=== PATIENT | female | born 1975 | race Hispanic/Latino ===

== ENCOUNTER 2016-12-21 23:10 | Emergency (ER) | payer OTHER ==
[2016-12-21 23:42] VITALS: BMI 30.5
[2016-12-21 23:45] VITALS: O2SAT 98
[2016-12-22] MEDS ORDERED: Lidocaine 5% Patch TD STA (00:45)
--- NOTE | 2016-12-22 00:45 | ED PDOC ---
Arrival/HPI <Irineo Griffin - Last Filed: 12/22/16 02:27> - General Historian: Patient <Álvaro Sánchez - Last Filed: 12/24/16 01:27> - General Chief Complaint: Lower Extremity Problem/Injury Time Seen by Provider: 12/22/16 00:35 - History of Present Illness Narrative History of Present Illness (Text): 12/22/16 00:51 41 y/o female, pmh including seizure? and chronic lt. knee pain, allergic to benadryl and sulfa medication, c/o lt. knee and calf pain started today. Pt. was trying to stand up from the sitting position, suddenly developed the lt. knee pain and radiating to the calf, no difficulty moving the lt. ankle or foot , able to walk and bear weight but with pain, no headache or night sweat, no other medical or psychological complaints. (Álvaro Sánchez) Past Medical History - Provider Review Nursing Documentation Reviewed: Yes - Infectious Disease Hx of Infectious Diseases: None - Tetanus Immunization Tetanus Immunization: Unknown, Up to Date - Past Medical History Past Medical History: No Previous - Cardiac Hx Cardiac Disorders: No - Pulmonary Hx Respiratory Disorders: No - Neurological Hx Neurological Disorder: Yes Hx Seizures: Yes - HEENT Hx HEENT Disorder: No - Renal Hx Renal Disorder: No - Endocrine/Metabolic Hx Systemic Lupus Erythematosus: Yes - Hematological/Oncological Hx Blood Disorders: Yes Other/Comment: Factor 5 clotting d/o - Integumentary Hx Dermatological Disorder: No - Musculoskeletal/Rheumatological Hx Musculoskeletal Disorders: No Hx Rheumatoid Arthritis: Yes - Gastrointestinal Hx Gastrointestinal Disorders: No - Genitourinary/Gynecological Hx Genitourinary Disorders: No - Psychiatric Hx Psychophysiologic Disorder: No Hx Depression: No Hx Emotional Abuse: No Hx Physical Abuse: No Hx Substance Use: No - Surgical History Hx Cholecystectomy: Yes Hx Musculoskeletal Surgery: Yes (right knee, left ankle) - Anesthesia Hx Anesthesia: Yes Hx Anesthesia Reactions: No Hx Malignant Hyperthermia: No - Suicidal Assessment Feels Threatened In Home Enviroment: No <Álvaro Sánchez - Last Filed: 12/24/16 01:27> Family/Social History - Physician Review Nursing Documentation Reviewed: Yes Family/Social History: Unknown Family HX Smoking Status: Heavy Smoker > 10 Cigarettes Daily Hx Alcohol Use: No Hx Substance Use: No Hx Substance Use Treatment: No <Álvaro Sánchez - Last Filed: 12/24/16 01:27> Allergies/Home Meds <Irineo Griffin - Last Filed: 12/22/16 02:27> <Álvaro Sánchez - Last Filed: 12/24/16 01:27> Allergies/Adverse Reactions: Allergies diphenhydramine Allergy (Verified 03/14/16 23:32) ANAPHYLAXIS Sulfa (Sulfonamide Antibiotics) Allergy (Verified 03/14/16 23:32) ANAPHYLAXIS Home Medications: Home Meds Medication Instructions Recorded Confirmed Topiramate [Topamax] 200 mg PO BID 06/21/1516 Review of Systems - Review of Systems Constitutional: absent: Fatigue, Fevers Eyes: absent: Vision Changes ENT: absent: Hearing Changes Respiratory: absent: Cough Cardiovascular: absent: Chest Pain Gastrointestinal: absent: Abdominal Pain, Nausea, Vomiting Genitourinary Female: absent: Dysuria Musculoskeletal: Arthralgias. absent: Back Pain, Neck Pain, Joint Swelling, Myalgias Neurological: absent: Headache, Dizziness, Focal Weakness, Gait Changes, Speech Changes, Facial Droop, Disequilibrium, Seizure <Álvaro Sánchez - Last Filed: 12/24/16 01:27> Physical Exam Vital Signs Reviewed: Yes Temperature: Afebrile Blood Pressure: Normal Pulse: Regular Respiratory Rate: Normal Appearance: Positive for: Well-Appearing, Non-Toxic, Comfortable Pain Distress: Moderate Mental Status: Positive for: Alert and Oriented X 3 - Systems Exam Head: Present: Atraumatic, Normocephalic Pupils: Present: PERRL Extroacular Muscles: Present: EOMI Conjunctiva: Present: Normal Mouth: Present: Moist Mucous Membranes Neck: Present: Normal Range of Motion Respiratory/Chest: Present: Clear to Auscultation, Good Air Exchange. No: Respiratory Distress, Accessory Muscle Use Cardiovascular: Present: Regular Rate and Rhythm, Normal S1, S2. No: Murmurs Abdomen: Present: Normal Bowel Sounds. No: Tenderness, Distention, Peritoneal Signs Back: Present: Normal Inspection Upper Extremity: Present: Normal Inspection. No: Cyanosis, Edema Lower Extremity: Present: Normal Inspection, NORMAL PULSES, Normal ROM, Tenderness, Swelling, Neurovascularly Intact, Capillary Refill < 2 s, Other ( Lt. lower extremity: +ttp on the anterior aspect of the knee including mild swelling, negative prashant and mcqueen signs, no cellulitis or streaking, skin intact, motor 5/5, +DPPT pulses, capillary refill< 2 seconds, neurovascular intact. ). No: Edema, Deformity, Temperature Abnormalties Neurological: Present: GCS=15, CN II-XII Intact, Speech Normal, Motor Func Grossly Intact, Gait Normal, Memory Normal Skin: Present: Warm, Dry, Normal Color. No: Rashes Psychiatric: Present: Alert, Oriented x 3, Normal Insight, Normal Concentration <Álvaro Sánchez - Last Filed: 12/24/16 01:27> Vital Signs Temp Pulse Resp BP Pulse Ox 12/22/16 02:00 98.0 F 78 18 124/80 98 12/21/16 23:41 98.2 F 81 17 130/82 98 Medical Decision Making <Irineo Griffin - Last Filed: 12/22/16 02:27> - RAD Interpretation Nurse Healthcare Manager: Radiologist <Álvaro Sánchez - Last Filed: 12/24/16 01:27> ED Course and Treatment: 12/22/16 00:54 -lt. knee xray and LLE venuous doppler -indomethacin and fede wrap -observe and reassess 12/22/16 02:07 -LLE venuous doppler: as per preliminary report, there is no acute DVT -Lt. knee xray show swelling but no fracture or dislocation -Pain decreased, fede wrap applied with neurovascular intact. -Discharge home with indomethacin, fede wrap, crutches, ice compression, non- weight bearing, follow up with your own pmd and orthopedic within 2 days for MRI of the lt. knee as outpatient follow up for possible menisucus or other ligamentous injury, return to the ER for any new or worsening signs or symptoms. (Álvaro Sánchez) - RAD Interpretation Radiology Orders: 12/22/16 00:45 KNEE WITH PATELLA LEFT 3 VIEW [RAD] Stat 12/22/16 00:46 DUPLEX LOWER EXTRM VEIN LEFT [US] Stat Lt. knee xray: soft tissue swelling without articular fracture or dislocation. LLE Venuous doppler: no evidence of DVT. (Álvaro Sánchez) - Medication Orders Current Medication Orders: Discontinued Medications Indomethacin (Indocin) 50 mg PO STAT STA Stop: 12/22/16 00:46 Last Admin: 12/22/16 01:16 Dose: 50 MG MAR Pain Assessment Document 12/22/16 01:16 JIN (Rec: 12/22/16 01:16 [facility]-[id number]) Pain Reassessment Is this a pain reassessment? Yes Sleep Is patient sleeping during reassessment? No Presence of Pain Presence of Pain Yes Location Left, Right or Bilateral Left Pain Location Body Site Knee Lidocaine (Lidoderm) 1 ea TD STAT STA Stop: 12/22/16 00:46 - PA / [employer]CROW OFFICER / Resident Statement GALINA has reviewed & agrees with the documentation as recorded. <Irineo Griffin - Last Filed: 12/22/16 02:27> - PA / ESCROW OFFICER / Resident Statement GALINA has reviewed & agrees with the documentation as recorded. <Álvaro Sánchez - Last Filed: 12/24/16 01:27> Disposition/Present on Arrival <Irineo Griffin - Last Filed: 12/22/16 02:27> - Present on Arrival Any Indicators Present on Arrival: No History of DVT/PE: No History of Uncontrolled Diabetes: No Urinary Catheter: No History of Decub. Ulcer: No History Surgical Site Infection Following: None - Disposition Have Diagnosis and Disposition been Completed?: Yes Disposition Time: 02:09 Patient Plan: Discharge <Álvaro Sánchez - Last Filed: 12/24/16 01:27> - Disposition Diagnosis: Knee pain, acute, Swelling of knee joint Disposition: HOME/ ROUTINE Condition: IMPROVED Additional Instructions: Discharge home with indomethacin, fede wrap, crutches, ice compression, non- weight bearing, follow up with your own pmd and orthopedic within 2 days for MRI of the lt. knee as outpatient follow up for possible menisucus or other ligamentous injury, return to the ER for any new or worsening signs or symptoms. Prescriptions: Indomethacin [Indocin] 50 mg PO TID PRN #30 cap PRN Reason: Other Referrals: Max Munroe III, MD [Medical Doctor] - Follow up with primary Forms: WORK NOTE
[2016-12-22 05:09] VITALS: BP 124/80; PULSE 78; RESP 18; TEMP 98
--- NOTE | 2016-12-22 11:06 | RAD ---
PROCEDURE: Left knee HISTORY: lt. knee injury and pain COMPARISON: None TECHNIQUE: Standard protocol for this study/examination. FINDINGS: Negative study for fracture No appreciable degenerative change. No joint effusion identified. No visualized, radiopaque loose bodies. Soft tissue swelling suprapatellar region. No associated abnormalities. IMPRESSION: Soft tissue swelling without acute articular or osseous abnormality. Concordant results with the preliminary interpretation rendered by the emergency department physician procedure.
--- NOTE | 2016-12-22 17:36 | US ---
PROCEDURE: Left lower extremity venous US HISTORY: Leg pain and swelling. Evaluate for DVT. PHYSICIAN(S): Robson Dacosta MD. TECHNIQUE: Duplex sonography and color-flow Doppler with graded compression were used to evaluate the deep venous system of the left lower extremity. FINDINGS: The visualized deep venous system of the left lower extremity is sonographically normal and compressible. Normal wave forms and augmentation are seen. There is no sonographic evidence for deep venous thrombosis in the visualized segments of the left lower extremity. IMPRESSION: 1. No sonographic evidence for deep venous thrombosis in the visualized segments of the left lower extremity.
== END 2016-12-22 02:15 | disposition home or self-care (01) ==
LOC: ED 23:10
DX: M25.562 Pain in left knee (principal); M79.89 Other specified soft tissue disorders

== ENCOUNTER 2017-09-12 20:02 | Emergency (ER) | payer OTHER ==
[2017-09-12 20:28] VITALS: RESP 19; TEMP 97.9; BMI 26.4
[2017-09-12] MEDS ORDERED: TDAP Vaccine 0.5 mL Syr IM ONE (20:41)
--- NOTE | 2017-09-12 21:32 | ED PDOC ---
Arrival/HPI - General Chief Complaint: Lower Extremity Problem/Injury Time Seen by Provider: 09/12/17 20:28 Historian: Patient - History of Present Illness Narrative History of Present Illness (Text): 09/12/17 21:25 A 42 year old female presents to the emergency department complaining of right knee and left ankle injuries s/p fall. Patient reports abrasion to knee and pain to lateral aspect of ankle. Patient unable to ambulate due to pain. does not take any anticoagulants. Tetanus shots not up-to-date. No PMD Past Medical History - Provider Review Nursing Documentation Reviewed: Yes - Infectious Disease Hx of Infectious Diseases: None - Tetanus Immunization Tetanus Immunization: Unknown, Up to Date - Past Medical History Past Medical History: No Previous - Cardiac Hx Cardiac Disorders: No - Pulmonary Hx Respiratory Disorders: No - Neurological Hx Neurological Disorder: Yes Hx Seizures: Yes - HEENT Hx HEENT Disorder: No - Renal Hx Renal Disorder: No - Endocrine/Metabolic Hx Systemic Lupus Erythematosus: Yes - Hematological/Oncological Hx Blood Disorders: Yes Other/Comment: Factor 5 clotting d/o - Integumentary Hx Dermatological Disorder: No - Musculoskeletal/Rheumatological Hx Musculoskeletal Disorders: No Hx Rheumatoid Arthritis: Yes - Gastrointestinal Hx Gastrointestinal Disorders: No - Genitourinary/Gynecological Hx Genitourinary Disorders: No - Psychiatric Hx Psychophysiologic Disorder: No Hx Depression: No Hx Emotional Abuse: No Hx Physical Abuse: No Hx Substance Use: No - Surgical History Hx Cholecystectomy: Yes Hx Musculoskeletal Surgery: Yes (right knee, left ankle) - Anesthesia Hx Anesthesia: Yes Hx Anesthesia Reactions: No Hx Malignant Hyperthermia: No - Suicidal Assessment Feels Threatened In Home Enviroment: No Family/Social History - Physician Review Nursing Documentation Reviewed: Yes Family/Social History: No Known Family HX Smoking Status: Heavy Smoker > 10 Cigarettes Daily Hx Alcohol Use: No Hx Substance Use: No Hx Substance Use Treatment: No Allergies/Home Meds Allergies/Adverse Reactions: Allergies diphenhydramine Allergy (Verified 09/12/17 20:28) ANAPHYLAXIS Sulfa (Sulfonamide Antibiotics) Allergy (Verified 09/12/17 20:28) ANAPHYLAXIS Home Medications: Home Meds Medication Instructions Recorded Confirmed Topiramate [Topamax] 200 mg PO BID 06/21/15 09/12/17 Review of Systems - Physician Review All systems were reviewed & negative as marked: Yes - Review of Systems Constitutional: absent: Fevers, Night Sweats Musculoskeletal: Other (right knee and left ankle injuries) Skin: Other (abrasion) Hemo/Lymphatic: absent: Easy Bleeding, Easy Bruising Physical Exam Vital Signs Reviewed: Yes Vital Signs Temp Pulse Resp BP Pulse Ox 09/12/17 20:29 97.9 F 84 19 150/108 H 97 09/12/17 20:27 97.9 F 84 19 150/108 H 97 Temperature: Afebrile Blood Pressure: Normal Pulse: Regular Respiratory Rate: Normal Appearance: Positive for: Well-Appearing Pain Distress: None Mental Status: Positive for: Alert and Oriented X 3 - Systems Exam Lower Extremity: Present: NORMAL PULSES (left ankle), Other (clean abrasion 2 cm right knee inferior portion, to joint laxative, pain lateral tension; left ankle no swelling ligament, tender lateral inferior posterior maliolis) Medical Decision Making - Lab Interpretations Narrative Lab Interpretation (Text): 09/12/17 22:34 ankle and knee xrays neg for fracture or dislcoation sts on ankle - RAD Interpretation Narrative RAD Interpretations (Text): 09/12/17 22:35 no fracture/dislocation Radiology Orders: 09/12/17 20:39 ANKLE LEFT 3 VIEWS ROUTINE [RAD] Stat 09/12/17 20:40 KNEE W PATELLA RIGHT 3 VIEW [RAD] Stat Professor Of Theatre: ED Physician - Medication Orders Current Medication Orders: Discontinued Medications Ibuprofen (Motrin Tab) 800 mg PO STAT STA Stop: 09/12/17 20:41 Last Admin: 09/12/17 21:17 Dose: 800 mg MAR Pain/Vitals Document 09/12/17 21:17 EQ (Rec: 09/12/17 21:17 [place] [facility] [id number] Pain Reassessment Is This A Pain ReAssessment? No Sleep Is patient sleeping during reassessment? No Presence of Pain Presence of Pain Yes Pain Scale Used Pain Scale Used Numeric Tetanus/Reduced Diphtheria/Acell Pertussis (Boostrix Vaccine Inj) 0.5 ml IM .ONCE ONE Stop: 09/12/17 20:42 Last Admin: 09/12/17 21:17 Dose: 0.5 ml Immunization Registry Document 09/12/17 21:17 EQ (Rec: 09/12/17 21:17 EQ [facility] [id number] Immunization Registry Consent Date 07/29/17 - Scribe Statement The provider has reviewed the documentation as recorded by the Scribe Sudheeran Dabdi Provider Nunoibe Attestation: All medical record entries made by the Andrew were at my direction and personally dictated by me. I have reviewed the chart and agree that the record accurately reflects my personal performance of the history, physical exam, medical decision making, and the department course for this patient. I have also personally directed, reviewed, and agree with the discharge instructions and disposition. Disposition/Present on Arrival - Present on Arrival Any Indicators Present on Arrival: No History of DVT/PE: No History of Uncontrolled Diabetes: No Urinary Catheter: No History of Decub. Ulcer: No History Surgical Site Infection Following: None - Disposition Have Diagnosis and Disposition been Completed?: Yes Diagnosis: Ankle sprain, Contusion of knee, right Disposition: HOME/ ROUTINE Disposition Time: 22:35 Patient Plan: Discharge Patient Problems: Current Active Problems Problem Status Onset Ankle sprain Acute Contusion of knee, right Acute Condition: IMPROVED Discharge Instructions (ExitCare): Ankle Sprain (ED), Knee Sprain (ED), Ankle Stirrup Splint (ED) Additional Instructions: Your blood pressure was elevated today. followup with your primary doctor about Blood pressure management. Prescriptions: Ibuprofen [Motrin] 600 mg PO Q6 PRN #12 tab PRN Reason: Pain, Moderate (4-7) Referrals: PCP,NO [Primary Care Provider] - Follow up with primary Forms: [employer] (Swedish)
[2017-09-12 22:42] VITALS: PULSE 86; O2SAT 99
[2017-09-12 22:45] VITALS: BP 158/98
--- NOTE | 2017-09-13 14:34 | RAD ---
PROCEDURE: Left Ankle Radiographs. HISTORY: ankle pain COMPARISON: None FINDINGS: BONES: Normal. No fracture. JOINTS: Normal. No osteoarthritis. Ankle mortise maintained. Talar dome intact SOFT TISSUES: Normal. OTHER FINDINGS: Calcaneal spurs are seen IMPRESSION: Negative study
--- NOTE | 2017-09-13 14:36 | RAD ---
PROCEDURE: Right Knee Radiographs. HISTORY: fall COMPARISON: None. FINDINGS: BONES: Normal. No fracture. JOINTS: Normal. No osteoarthritis. JOINT EFFUSION: None. OTHER FINDINGS: None. IMPRESSION: Normal radiographs of the right knee.
== END 2017-09-12 22:46 | disposition home or self-care (01) ==
LOC: ED 20:02
DX: S93.402A Sprain of unspecified ligament of left ankle, initial encounter (principal); S80.01XA Contusion of right knee, initial encounter; M32.9 Systemic lupus erythematosus, unspecified; M06.9 Rheumatoid arthritis, unspecified; F17.210 Nicotine dependence, cigarettes, uncomplicated; Z88.2 Allergy status to sulfonamides; Z23 Encounter for immunization

== ENCOUNTER 2017-11-11 19:36 | Emergency (ER) | payer OTHER ==
[2017-11-11] MEDS ORDERED: Sodium Chloride 0.9% 1,000 ML IV STA (19:54)
[2017-11-11 19:55] VITALS: BMI 27.1
--- NOTE | 2017-11-11 20:00 | ED PDOC ---
Arrival/HPI - General Chief Complaint: Female Genitourinary Time Seen by Provider: 11/11/17 19:43 Historian: Patient - History of Present Illness Time/Duration: Other (2 days) Symptom Onset: Gradual Symptom Course: Worsening Quality: Aching Severity Level: Moderate Activities at Onset: Rest Associated Symptoms (Text): 11/11/17 19:58 Patient complains of a 2 day history of left flank pain with radiation into her left lower extremity. She also has urinary urgency frequency and dysuria. No hematuria. No abdominal pain nausea vomiting or diarrhea. No fever or chills. No injury or trauma. She has never experienced this previously. The pain became worse this evening and she came to the emergency department. Past Medical History - Infectious Disease Hx of Infectious Diseases: None - Tetanus Immunization Tetanus Immunization: Unknown, Up to Date - Past Medical History Past Medical History: No Previous - Cardiac Hx Cardiac Disorders: No - Pulmonary Hx Respiratory Disorders: No - Neurological Hx Neurological Disorder: Yes Hx Seizures: Yes - HEENT Hx HEENT Disorder: No - Renal Hx Renal Disorder: No - Endocrine/Metabolic Hx Systemic Lupus Erythematosus: Yes - Hematological/Oncological Hx Blood Disorders: Yes Other/Comment: Factor 5 clotting d/o - Integumentary Hx Dermatological Disorder: No - Musculoskeletal/Rheumatological Hx Musculoskeletal Disorders: No Hx Rheumatoid Arthritis: Yes - Gastrointestinal Hx Gastrointestinal Disorders: No - Genitourinary/Gynecological Hx Genitourinary Disorders: No - Psychiatric Hx Psychophysiologic Disorder: No Hx Depression: No Hx Emotional Abuse: No Hx Physical Abuse: No Hx Substance Use: No - Surgical History Hx Cholecystectomy: Yes Hx Musculoskeletal Surgery: Yes (right knee, left ankle) - Anesthesia Hx Anesthesia: Yes Hx Anesthesia Reactions: No Hx Malignant Hyperthermia: No - Suicidal Assessment Feels Threatened In Home Enviroment: No Family/Social History - Physician Review Nursing Documentation Reviewed: Yes Family/Social History: Unknown Family HX Smoking Status: Heavy Smoker > 10 Cigarettes Daily Hx Alcohol Use: No Hx Substance Use: No Hx Substance Use Treatment: No Allergies/Home Meds Allergies/Adverse Reactions: Allergies diphenhydramine Allergy (Verified 09/12/17 20:28) ANAPHYLAXIS Sulfa (Sulfonamide Antibiotics) Allergy (Verified 09/12/17 20:28) ANAPHYLAXIS Home Medications: Home Meds Medication Instructions Recorded Confirmed Topiramate [Topamax] 200 mg PO BID 06/21/15 11/11/17 Review of Systems - Physician Review All systems were reviewed & negative as marked: Yes - Review of Systems Respiratory: Normal Cardiovascular: Normal Gastrointestinal: Normal Genitourinary Female: Dysuria, Frequency. absent: Hematuria, Vaginal Bleeding, Vaginal Discharge Neurological: Normal Physical Exam Vital Signs Temp Pulse Resp BP Pulse Ox 11/11/17 19:56 97.2 F L 86 20 118/85 100 Temperature: Afebrile Blood Pressure: Normal Pulse: Regular Respiratory Rate: Normal Appearance: Positive for: Well-Appearing, Non-Toxic, Uncomfortable Pain Distress: Mild Mental Status: Positive for: Alert and Oriented X 3 - Systems Exam Head: Present: Atraumatic, Normocephalic Pupils: Present: PERRL Extroacular Muscles: Present: EOMI Conjunctiva: Present: Normal Mouth: Present: Moist Mucous Membranes Pharnyx: No: ERYTHEMA, EXUDATE, TONSILS ENLARGED Neck: Present: Normal Range of Motion Respiratory/Chest: Present: Clear to Auscultation, Good Air Exchange. No: Respiratory Distress, Accessory Muscle Use Cardiovascular: Present: Regular Rate and Rhythm, Normal S1, S2. No: Murmurs Abdomen: Present: Normal Bowel Sounds. No: Tenderness, Distention, Peritoneal Signs, Rebound, Guarding Back: Present: Normal Inspection. No: CVA Tenderness, Midline Tenderness, Paraspinal Tenderness Upper Extremity: Present: Normal Inspection. No: Cyanosis, Edema Lower Extremity: Present: Normal Inspection. No: Edema Neurological: Present: GCS=15, CN II-XII Intact, Speech Normal, Motor Func Grossly Intact, Normal Cerebellar Funct, Gait Normal Skin: Present: Warm, Dry, Normal Color. No: Rashes Psychiatric: Present: Alert, Oriented x 3, Normal Insight, Normal Concentration Medical Decision Making ED Course and Treatment: 11/11/17 21:24 Symptoms have improved. Workup is negative. Patient will be treated as a musculoskeletal back problem with muscle relaxers and nonsteroidals. She is instructed to follow up with her PMD. Follow-up in the ER as needed. - Lab Interpretations Lab Results: 11/11/17 19:30 11/11/17 19:30 Lab Results 11/11/17 19:30: Urine HCG, Qual Negative 11/11/17 19:30: Sodium 143, Potassium 3.7, Chloride 106, Carbon Dioxide 25, Anion Gap 17, BUN 12, Creatinine 0.8, Est GFR ( Amer) > 60, Est GFR (Non- Af Amer) > 60, Random Glucose 118 H, Calcium 9.3, Total Bilirubin 0.4, AST 27, ALT 18, Alkaline Phosphatase 56, Total Protein 8.1, Albumin 4.0, Globulin 4.1, Albumin/Globulin Ratio 1.0 L, Lipase 62 11/11/17 19:30: WBC 5.4 D, RBC 4.43, Hgb 13.0, Hct 39.1, MCV 88.3, MCH 29.3, MCHC 33.2, RDW 13.1, Plt Count 216, MPV 9.0, Gran % 51.4, Lymph % (Auto) 36.8 H , [place] % (Auto) 8.3 H, Eos % (Auto) 3.3, Baso % (Auto) 0.2, Gran # 2.79, Lymph # (Auto) 2.0, [place] # (Auto) 0.5, Eos # (Auto) 0.2, Baso # (Auto) 0.01 11/11/17 19:30: Urine Color Yellow, Urine Appearance Clear, Urine pH 7.5, Ur Specific [place] 1.020, Urine Protein Negative, Urine Glucose (UA) Negative, Urine Ketones Negative, Urine Blood Negative, Urine Nitrate Negative, Urine Bilirubin Negative, Urine Urobilinogen 0.2, Ur Leukocyte Esterase Negative - RAD Interpretation Radiology Orders: 11/11/17 19:54 ABD & PELVIS W/O PO OR IV CONT [CT] Stat CT scan of the abdomen and pelvis as read by the radiologist shows no acute findings. Room Service Bellhop: Radiologist - Medication Orders Current Medication Orders: Discontinued Medications Sodium Chloride (Sodium Chloride 0.9%) 1,000 mls @ 1,000 mls/hr IV .Q1H STA Stop: 11/11/17 20:53 Last Admin: 11/11/17 20:08 Dose: 1,000 mls/hr eMAR Start Stop Document 11/11/17 20:08 AB (Rec: 11/11/17 20:08 AB [facility] [id number] Intravenous Solution Start Date 11/11/17 Start Time 20:08 End Date 11/11/17 End time 21:08 Total Infusion Time 60 Ketorolac Tromethamine (Toradol) 30 mg IVP STAT STA Stop: 11/11/17 19:55 Last Admin: 11/11/17 20:08 Dose: 30 mg MAR Pain Assessment Document 11/11/17 20:08 AB (Rec: 11/11/17 20:08 AB [facility] [id number] Pain Reassessment Is this a pain reassessment? Yes Sleep Is patient sleeping during reassessment? No Presence of Pain Presence of Pain Yes Pain Scale Used Pain Scale Used Numeric Location Left, Right or Bilateral Left Upper or Lower Lower Pain Location Body Site Abdomen Back Description Description Constant Intensity of Pain at present 6 Pain Behavior Guarding Irritability Aggravating Factors ADL's Alleviating Factors/Management Medication Techniques IVP Administration Document 11/11/17 20:08 AB (Rec: 11/11/17 20:08 AB [facility] [id number]) Charges for Administration # of IVP Administrations 1 Disposition/Present on Arrival - Present on Arrival Any Indicators Present on Arrival: No History of DVT/PE: No History of Uncontrolled Diabetes: No Urinary Catheter: No History of Decub. Ulcer: No History Surgical Site Infection Following: None - Disposition Have Diagnosis and Disposition been Completed?: Yes Diagnosis: Low back pain, Dysuria Disposition: HOME/ ROUTINE Disposition Time: 21:25 Patient Plan: Discharge Condition: IMPROVED Discharge Instructions (ExitCare): Low Back Pain in Adults, Dysuria, Adult (DC) Additional Instructions: Follow-up with PMD. Follow up in ER as needed. Prescriptions: Cyclobenzaprine [Cyclobenzaprine HCl] 5 mg PO Q8 #15 tab Naproxen [Naprosyn] 500 mg PO BID #14 tab Referrals: Brooke Christina DO [Primary Care Provider] - Follow up with primary Forms: [employer] (Salvadorean)
[2017-11-11 20:20] LABS: BASO # 0.01 K/mm3 (0.0-2.0); BASO % 0.2 % (0.0-3.0); EOS # 0.2 (0.0-0.7); EOS % 3.3 % (1.5-5.0); GRAN # 2.79 (1.4-6.5); GRAN % 51.4 % (50.0-68.0); LYMPH % 36.8 % (22.0-35.0); MEAN CELL VOLUME 88.3 fl (80.0-105.0); MEAN CORPUSCULAR HEMOGLOBIN 29.3 pg (25.0-35.0); MEAN CORPUSCULAR HGB CONC 33.2 g/dl (31.0-37.0); MONO # 0.5 (0.1-0.6); MONO % 8.3 % (1.0-6.0); PH,URINE 7.5 (4.7-8.0); RBC 4.43 10^6/uL (3.5-6.1); RED CELL DISTRIBUTION WIDTH 13.1 % (11.5-14.5); URINE BILIRUBIN NEGATIVE (NEGATIVE); URINE BLOOD NEGATIVE (NEGATIVE); URINE GLUCOSE (UA) NEGATIVE (NEGATIVE); URINE LEUKOCYTE ESTERASE NEGATIVE Leu/uL (NEGATIVE); URINE NITRATE NEGATIVE (NEGATIVE); URINE PROTEIN NEGATIVE mg/dL (<30 mg/dL); URINE UROBILINOGEN 0.2 E.U./dL (<1 E.U./dL); WHITE BLOOD COUNT 5.4 10^3/ul (4.5-11.0)
[2017-11-11 20:23] LABS: URINE APPEARANCE CLEAR (CLEAR); URINE COLOR YELLOW (YELLOW)
[2017-11-11 20:29] LABS: CALCIUM 9.3 mg/dL (8.4-10.5); GFR AFRICAN-AMERICAN > 60; GFR NON-AFRICAN AMERICAN > 60; LIPASE 62 U/L (23-300)
[2017-11-11 20:58] LABS: ALT/SGPT 18 U/L (7-56); AST/SGOT 27 U/L (14-36); BLOOD UREA NITROGEN 12 mg/dL (7-21)
--- NOTE | 2017-11-11 21:19 | CT ---
EXAM: CT Abdomen and Pelvis Without Intravenous Contrast CLINICAL HISTORY: 42 years old, female; Pain; Abdominal pain; Other: Left stone run; Prior surgery; Surgery date: 6+ months TECHNIQUE: Axial computed tomography images of the abdomen and pelvis without intravenous contrast. All CT scans at this facility use one or more dose reduction techniques, viz.: automated exposure control; ma/kV adjustment per patient size (including targeted exams where dose is matched to indication; i.e. head); or iterative reconstruction technique. Coronal and sagittal reformatted images were created and reviewed. COMPARISON: No relevant prior studies available. FINDINGS: Lower thorax: No acute findings. ABDOMEN: Liver: Unremarkable. Gallbladder and bile ducts: Cholecystectomy. No ductal dilation. Pancreas: Unremarkable. No ductal dilation. Spleen: Unremarkable. No splenomegaly. Adrenals: Unremarkable. No mass. Kidneys and ureters: Unremarkable. No obstructing stones. No hydronephrosis. Stomach and bowel: Nonspecific fluid-filled prominent small bowel loops, may reflect enteritis. Appendix: No findings to suggest acute appendicitis. PELVIS: Bladder: Unremarkable. No stones. Reproductive: Unremarkable as visualized. ABDOMEN and PELVIS: Intraperitoneal space: Unremarkable. No free air. No significant fluid collection. Bones/joints: Diffuse spinal degenerative changes. No acute fracture. No dislocation. Soft tissues: Unremarkable. Vasculature: Unremarkable. No abdominal aortic aneurysm. Lymph nodes: Unremarkable. No enlarged lymph nodes. IMPRESSION: 1. Nonspecific fluid-filled prominent small bowel loops, may reflect enteritis. 2. No left hydronephrosis, renal, or definite ureteral calculus 3. Remainder of findings as above.
[2017-11-11 21:41] VITALS: BP 114/70; PULSE 88; RESP 18; TEMP 98.2; O2SAT 99
== END 2017-11-11 21:42 | disposition home or self-care (01) ==
LOC: ED 19:36
DX: M54.5 Low back pain (principal); R30.0 Dysuria; Z90.49 Acquired absence of other specified parts of digestive tract
CPT/HCPCS: 74176; 80053; 81003; 83690; 84703; 85025; 96361; 96374; 99283; J1885; J7040